=== PATIENT | male | born 1945 | race Caucasian/White ===

== ENCOUNTER 2017-03-18 09:24 | Observation (INO) | payer OTHER, MEDICARE ==
[~2017-03-18] VITALS: Ht 172.7 cm; Wt 63.5 kg
[~2017-03-18 09:24] MED LIST: AUGMENTIN 875-1 EACH PO; AVODART0.5 M1 PO; CITALOPRAM HBR10 MG PO; CLARITIN10 M1 PO; DEPAKOTE ER500 M1 PO; DIVALPROEX SOD500 M3 PO; DOXAZOSIN MESYLA2 M1 PO; ELIDEL30 GM TOP; ENSURE LIQUID237 ML PO; IMIPRAMINE HCL PO; LEVOTHYROXINE50 MCG PO; PANTOPRAZOLE SO40 M1 PO; PROPRANOLOL HCL10 M1 PO; SELENIUM SULFI180 ML TOP; SENNOSIDES-DOC1 EACH PO; TYLENOL325 M1 PO; ZYPREXA5 M1 PO
--- NOTE | 2017-03-18 09:59 | ED GI/GU/ABDOMINAL COMPLAINT ---
History of Present Illness General Chief Complaint: Nausea, Vomiting, Diarrhea Stated Complaint: VOMITING Source: patient Exam Limitations: dementia, anoxic brain injury Vital Signs & Intake/Output Vital Signs & Intake/Output Vital Signs Date Time Temp Pulse Resp B/P B/P Pulse O2 O2 Flow FiO2 Mean Ox Delivery Rate 03/18 1145 96.2 100 20 105/67 96 Room Air 03/18 0929 96.3 88 18 124/70 Allergies Coded Allergies: carbamazepine (UNKNOWN 08/19/15) Reconcile Medications Acetaminophen (Tylenol) 325 MG TABLET 2 TAB PO TID PRN PAIN (Reported) Citalopram Hydrobromide (Citalopram HBr) 10 MG TABLET 1 TAB PO DAILY MENTAL HEALTH (Reported) Divalproex Sodium (Depakote ER) 500 MG TAB.ER.24H 1 TAB PO BID MENTAL HEALTH (Reported) Docusate Sodium (Colace) 100 MG CAPSULE 1 CAP PO BID STOOL SOFTENER (Reported ) Doxazosin Mesylate 2 MG TABLET 1 TAB PO QPM HTN (Reported) Dutasteride (Avodart) 0.5 MG CAPSULE 1 CAP PO QPM BPH (Reported) Imipramine HCl 10 MG TABLET 2 TAB PO QPM MENTAL HEALTH (Reported) Lactose-Reduced Food (Ensure Liquid) 237 ML LIQUID 1 CAN PO AD PRN NUTRITION (Reported) Levothyroxine Sodium 50 MCG TABLET 1 TAB PO DAILY AC THYROID (Reported) Loratadine (Claritin) 10 MG TABLET 1 TAB PO QPM ALLERGIES (Reported) Olanzapine (Zyprexa) 5 MG TABLET 1 TAB PO DAILY DAILY Pantoprazole Sodium 40 MG TABLET.DR 1 TAB PO QPM GI (Reported) Pimecrolimus (Elidel) 1 % CREAM..G. 1 ANNABELLA TOP AD AFFECTED AREA (Reported) apply to affected area(s) Propranolol HCl 10 MG TABLET 1 TAB PO QPM HEART (Reported) Selenium Sulfide 2.25 % SHAMPOO 1 ANNABELLA TOP Sunday RAMIREZ (Reported) Triage Note: PT TO ED WITH C/O VOMITING X 2 THIS AM, DENIES ABD PAIN OR DIARRHEA. Triage Nurses Notes Reviewed? yes Onset: Abrupt Duration: hour(s):, continues in ED, intermittent Timing: multiple episodes today Quality/Severity: severe HPI: Patient presents for evaluation of coughing and vomiting beginning this morning. No other history is available per patient or long-term staff. When asked if there was anything bothering him, Lalita stated "my ass hurts because of the chair" (patient just returned from radiology in a wheelchair) . Past History Travel History Traveled to [place] past 21 day No Medical History Any Pertinent Medical History? 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 No Review of Systems Review of Systems Constitutional: Reports: see HPI. Comments pt unable to provide ros Physical Exam Physical Exam Gastrointestinal: see below Comments: Gen.: Well-nourished, well-developed, no acute respiratory distress. Head: Normocephalic, atraumatic. Eyes: Normal inspection bilaterally Ears: Normal inspection bilaterally Nose: Normal inspection Throat/mouth : Moist mucosa Neck: Supple, full range of motion, no goiter Heart: Regular rate and rhythm, no murmurs rubs or gallops Lungs: Clear to auscultation bilaterally with normal air entry Chest: Nontender Back: Normal range of motion Abdomen: Soft, nontender, nondistended, normal bowel sounds Extremities: Normal range of motion grossly, equal radial pulses, no cyanosis clubbing or edema Neurologic: Cranial nerves grossly intact, speech is clear Skin: warm and dry Psychiatric: Calm, cooperative, paucity of speech Core Measures ACS in differential dx? No Sepsis Present: No Sepsis Focused Exam Completed? No Progress Differential Diagnosis: bowel obstruction, gastritis, pancreatitis, PUD/GERD Plan of Care: Orders Procedure Date/time Status Regular Diet 03/[address] in observation 03/18 1221 Active Misc Message 03/18 1221 Active ED Holding Orders 03/18 1221 Active Vital Signs 03/18 1221 Active Code Status 03/18 1221 Active Add-on Test (ER Only) 03/18 1209 Active CULTURE,URINE 03/18 1015 Active URINALYSIS 03/18 1015 Complete LIPASE 03/18 1015 Complete COMPREHENSIVE METABOLIC PANEL 03/18 1015 Complete CBC WITHOUT DIFFERENTIAL 03/18 101 Complete Current Medications Sig/Rehan Start time Last Medication Dose Stop Time Status Admin Sodium Chloride 1,000 ML ONCE ONE 03/18 1215 AC (Normal Saline 0.9%) 03/18 1854 Laboratory Tests 03/18/17 1035: Urinalysis LIGHT H, Urine Color ORANG H, Urine Clarity HAZY H, Urine pH 6.0, Ur Specific [place] >= 1.030, Urine Protein 30 H, Urine Ketones 15 H, Urine Nitrite POS H, Urine Bilirubin NEG@ICTO, Urine Urobilinogen 0.2, Ur Leukocyte Esterase NEG, Ur Microscopic SEDIMENT EXAMINED, Urine WBC RARE, Ur Epithelial Cells FEW, Urine Mucus MANY H, Micro UA Comment , Urine Hemoglobin NEG, Urine Glucose NEG 03/18/17 1029: Anion Gap 13, Estimated GFR > 60, BUN/Creatinine Ratio 31.4 H, Glucose 197 H, Calcium 8.6, Total Bilirubin 2.5 H, AST 35, ALT 33, Alkaline Phosphatase 50, Total Protein 6.7, Albumin 3.9, Globulin 2.8, Albumin/Globulin Ratio 1.4, Lipase 136, CBC w Diff MAN DIFF ORDERED, RBC 5.85, MCV 87.8, MCH 30.3, RDW 14.1, MPV 9.3, Gran % 93.1 H, Lymphocytes % 1.5 L, Monocytes % 5.3, Eosinophils % 0.1, Basophils % 0, Absolute Granulocytes 10.2 H, Segmented Neutrophils 76 H, Band Neutrophils 16 H, Absolute Lymphocytes 0.2 L, Lymphocytes 2 L, Monocytes 6, Absolute Monocytes 0.6, Absolute Eosinophils 0, Absolute Basophils 0, Platelet Estimate DECREASED, PUBS MCHC 34.5 Microbiology 03/18 1015 URINE ROUT: Urine Culture - RECD Diagnostic Imaging: Discussed w/RAD: Radiology Read. Radiology Impression: PATIENT: LALITA SABILLON PRESENT AGE: 72 PATIENT ACCOUNT NO: [id number] : 45 LOCATION: [facility] ORDERING PHYSICIAN: Nestor Zamora MD SERVICE DATE: 03/18/17 EXAM TYPE : RAD - [id number]-[id number]-SZOOSLVF VIEWS EXAMINATION: XR ABDOMEN MULTIPLE VIEWS CLINICAL INDICATION: Vomiting COMPARISON: CT abdomen and pelvis from 12/22/2008 TECHNIQUE: Upright and supine views of the abdomen. FINDINGS: Relative paucity of bowel gas. No gas-filled dilated bowel loops. No evidence of pneumoperitoneum. Multiple surgical clips project over the abdomen. Visualized lung bases are clear. IMPRESSION: Relative paucity of bowel gas. Otherwise unremarkable without gas-filled dilated loops. DICTATED BY: Odette Chen MD DATE/TIME DICTATED:03/18/171106 PARTY SUPPLY SPECIALIST:TERESA DATE/TIME TRANSCRIBED:03/18/171106 CONFIDENTIAL, DO NOT COPY WITHOUT APPROPRIATE AUTHORIZATION. <Electronically signed in Other Vendor System> SIGNED BY: Odette Chen MD 03/18/17 111 CXR Impression: PATIENT: LALITA SABILLON PRESENT AGE : 72 PATIENT ACCOUNT NO: [id number] : 45 LOCATION: [facility] ORDERING PHYSICIAN: Nestor Zamora MD SERVICE DATE: 03/18/17 EXAM TYPE: RAD - XRY-CHEST XRAY, TWO VIEWS EXAMINATION: XR CHEST CLINICAL INFORMATION: Vomiting. COMPARISON: 02/20/2017 TECHNIQUE: 2 views of the chest were obtained. FINDINGS: No focal consolidation, pulmonary edema, or pleural effusion. Normal cardiomediastinal silhouette. IMPRESSION: Unremarkable examination. DICTATED BY: Dejon Duarte MD DATE/TIME DICTATED:03/18/171105 PARTY SUPPLY SPECIALIST: TERESA DATE/TIME TRANSCRIBED:03/18/171105 CONFIDENTIAL, DO NOT COPY WITHOUT APPROPRIATE AUTHORIZATION. <Electronically signed in Other Vendor System> SIGNED BY: Dejon Duarte MD 03/18/17 111 Initial ED EKG: none Comments: 03/18/2017 12:02:39 PM I have updated [facility] and long-term staff on patient's evaluation. Miguel A urine is testing positive for nitrites there is no leukocyte esterase or white cells so I suspect given the orange discoloration that the nitrites may been a false positive. Patient does have a bandemia however and a recent hospitalization for severe sepsis. I'm attempting to contact his primary care physician regarding disposition. Clinically the patient remains stable and comfortable appearing. 03/18/2017 12:27:08 PM I have updated the long-term staff on Lalita's disposition. I was told that Lalita has been to the bathroom twice, feeling the need to urinate, but unable to do so. I feel this reflects urinary hesitancy and does raise the question of a urinary tract infection. Departure Departure Disposition: STILL A PATIENT Condition: Stable Clinical Impression Primary Impression: Bandemia Secondary Impressions: Metabolic acidosis Referrals: Cira Tamayo APRN (PCP/Family) Departure Forms: Customer Survey General Discharge Information Observation Note Spoke With: Andrea Verde MD Patient In: Non-ED [facility] Care Area Rationale for Observation: My rational for observation is as follows patient had a recent admission for severe sepsis secondary to pneumonia. He presents today with a cough and vomiting. His evaluation reveals a bandemia of unclear etiology. Although his urinalysis tests positive for nitrites it is difficult to interpret given the discoloration. However, nitrites in the urine does raise the question of a urea splitting urinary tract infection and this could potentially lead to sepsis in this elderly gentleman. To further complicate this patient's presentation he is unable to provide history given his history of anoxic brain injury and dementia. I do not feel this patient is a good candidate for outpatient treatment at this point but instead requires close clinical monitoring of vital signs and his clinical condition for the possibility of developing sepsis. During his hospitalization he should be administer gentle IV fluids in order to obtain another urinalysis to monitor for clearance of the urine discoloration and nitrites. The urine culture should be followed and treated accordingly. A repeat CBCs should be obtained to assess for reduction and bandemia.
[2017-03-18 10:47] LABS: ABSOLUTE BASOPHIL COUNT 0 /CUMM (0.0-0.2); ABSOLUTE EOSINOPHIL COUNT 0 /CUMM (0.0-0.7); BASOPHIL % 0 % (0.0-2.0); EOSINOPHIL % 0.1 % (0-5)
--- NOTE | 2017-03-18 11:15 | RADIOLOGY REPORT ---
EXAMINATION: XR CHEST CLINICAL INFORMATION: Vomiting. COMPARISON: 02/20/2017 TECHNIQUE: 2 views of the chest were obtained. FINDINGS: No focal consolidation, pulmonary edema, or pleural effusion. Normal cardiomediastinal silhouette. IMPRESSION: Unremarkable examination.
--- NOTE | 2017-03-18 11:17 | RADIOLOGY REPORT ---
EXAMINATION: XR ABDOMEN MULTIPLE VIEWS CLINICAL INDICATION: Vomiting COMPARISON: CT abdomen and pelvis from 12/22/2008 TECHNIQUE: Upright and supine views of the abdomen. FINDINGS: Relative paucity of bowel gas. No gas-filled dilated bowel loops. No evidence of pneumoperitoneum. Multiple surgical clips project over the abdomen. Visualized lung bases are clear. IMPRESSION: Relative paucity of bowel gas. Otherwise unremarkable without gas-filled dilated loops.
[2017-03-18 11:18] LABS: ABSOLUTE GRANULOCYTE CT 10.2 /CUMM (1.4-6.5); ABSOLUTE LYMPH COUNT 0.2 /CUMM (1.2-3.4); ABSOLUTE MONOCYTE COUNT 0.6 /CUMM (0.10-0.60); GRANULOCYTE % 93.1 % (42.2-75.2); HEMATOCRIT 51.3 % (42-52); MEAN CORPUSCULAR HGB 30.3 PG (27.0-31.0); MEAN CORPUSCULAR HGB CONC 34.5 G/DL (33.0-37.0); MEAN CORPUSCULAR VOLUME 87.8 FL (80.0-94.0); RBC DISTRIBUTION WIDTH 14.1 % (11.5-14.5); RED BLOOD CELL CT 5.85 /CUMM (4.70-6.10); WHITE BLOOD CELL COUNT 10.9 /CUMM (4.8-10.8)
[2017-03-18 11:19] LABS: MEAN PLATELET VOLUME 9.3 FL (7.4-10.4)
[2017-03-18 11:28] LABS: PLATELET COUNT 102 /CUMM (130-400)
[2017-03-18] MEDS ORDERED: COLACE100 M1 PO (12:14)
[2017-03-18] MEDS ORDERED: ENSURE LIQUID237 ML PO (12:15)
--- NOTE | 2017-03-18 13:51 | History & Physical ---
Bee HYMAN,[facility] 03/18/17 1351: General Information and HPI MD Statement: I have seen and personally examined LIZ SABILLON and documented this H&P. The patient is a 72 year old M who presented with a patient stated chief complaint of []. History of Present Illness: Mr. Sabillon is a 71-year-old male with past medical history of dementia, chronic podiatry, hypertension, and asthma who presents with one-day history of cough productive of white sputum and associated with multiple episodes of nonbloody vomiting, and very mild upper abdominal pain. The patient was recently discharged after he was treated for sepsis secondary to pneumonia. The patient is a poor historian secondary to his dementia, healthcare aide was in the room and he provided most of the history, he reported that patient had a 1 day history of multiple episodes of nonbloody vomiting. He denies fever, chills, diarrhea, or constipation. Even though patient denies urinary symptom, he was found to have polyuria while in the ED with a feeling of incomplete bladder emptying. Allergies/Medications Allergies: Coded Allergies: carbamazepine (UNKNOWN 08/19/15) Home Med list Acetaminophen (Tylenol) 325 MG TABLET 2 TAB PO TID PRN PAIN (Reported) Citalopram Hydrobromide (Citalopram HBr) 10 MG TABLET 1 TAB PO DAILY MENTAL HEALTH (Reported) Divalproex Sodium (Depakote ER) 500 MG TAB.ER.24H 1 TAB PO BID MENTAL HEALTH (Reported) Docusate Sodium (Colace) 100 MG CAPSULE 1 CAP PO BID STOOL SOFTENER (Reported ) Doxazosin Mesylate 2 MG TABLET 1 TAB PO QPM HTN (Reported) Dutasteride (Avodart) 0.5 MG CAPSULE 1 CAP PO QPM BPH (Reported) Imipramine HCl 10 MG TABLET 2 TAB PO QPM MENTAL HEALTH (Reported) Lactose-Reduced Food (Ensure Liquid) 237 ML LIQUID 1 CAN PO AD PRN NUTRITION (Reported) Levothyroxine Sodium 50 MCG TABLET 1 TAB PO DAILY AC THYROID (Reported) Loratadine (Claritin) 10 MG TABLET 1 TAB PO QPM ALLERGIES (Reported) Olanzapine (Zyprexa) 5 MG TABLET 1 TAB PO DAILY DAILY Pantoprazole Sodium 40 MG TABLET.DR 1 TAB PO QPM GI (Reported) Pimecrolimus (Elidel) 1 % CREAM..G. 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 EENTM: Denies: visual changes, hearing changes. Cardiovascular: Denies: chest pain, orthopena, palpitations, peripheral edema, syncope. Respiratory: Reports: cough, sputum production. Denies: hemoptysis, orthopnea, short of breath, stridor, wheezing. GI: Reports: abdominal pain, nausea, vomiting. Denies: constipation, diarrhea, distention. Genitourinary: Reports: frequency. Denies: dysuria, hematuria, hesitation. Neurological/Psychological: Reports: dementia. Denies: headache, numbness, tingling. Exam & Diagnostic Data Last 24 Hrs of Vital Signs/I&O Vital Signs Date Time Temp Pulse Resp B/P B/P Pulse O2 O2 Flow FiO2 Mean Ox Delivery Rate 03/18 1814 97.9 110 18 135/78 96 Room Air 03/18 1603 98.0 100 18 122/60 98 Room Air 03/18 1407 98.2 105 18 112/72 97 03/18 1145 96.2 100 20 105/67 96 Room Air 03/18 0929 96.3 88 18 124/70 Intake & Output 03/18 1600 03/18 0800 03/18 0000 Intake Total Output Total Balance Patient 63.503 kg Weight Weight Reported by Patient Measurement Method Physical Exam General Appearance Alert, Cooperative, not fully oriented Skin No Rashes, No Breakdown, No Significant Lesion HEENT Atraumatic, PERRLA, EOMI, Mucous Membr. moist/pink Neck No JVD Cardiovascular Regular Rate, Normal S1, Normal S2, No Murmurs Lungs Clear to Auscultation, Normal Air Movement Abdomen Normal Bowel Sounds, Soft, RUQ tenderness with positive macias's sign Neurological Normal Speech, Strength at 5/5 X4 Ext, but dementic Extremities No Clubbing, No Cyanosis, No Edema Last 24 Hrs of Labs/Scooter: Laboratory Tests 03/18/17 1804: Direct Bilirubin 0.4 03/18/17 1035: Urinalysis LIGHT H, Urine Color ORANG H, Urine Clarity HAZY H, Urine pH 6.0, Ur Specific [place] >= 1.030, Urine Protein 30 H, Urine Ketones 15 H, Urine Nitrite POS H, Urine Bilirubin NEG@ICTO, Urine Urobilinogen 0.2, Ur Leukocyte Esterase NEG, Ur Microscopic SEDIMENT EXAMINED, Urine WBC RARE, Ur Epithelial Cells FEW, Urine Mucus MANY H, Micro UA Comment , Urine Hemoglobin NEG, Urine Glucose NEG 03/18/17 1029: Anion Gap 13, Estimated GFR > 60, BUN/Creatinine Ratio 31.4 H, Glucose 197 H, Calcium 8.6, Total Bilirubin 2.5 H, AST 35, ALT 33, Alkaline Phosphatase 50, Total Protein 6.7, Albumin 3.9, Globulin 2.8, Albumin/Globulin Ratio 1.4, Lipase 136, CBC w Diff MAN DIFF ORDERED, RBC 5.85, MCV 87.8, MCH 30.3, RDW 14.1, MPV 9.3, Gran % 93.1 H, Lymphocytes % 1.5 L, Monocytes % 5.3, Eosinophils % 0.1, Basophils % 0, Absolute Granulocytes 10.2 H, Segmented Neutrophils 76 H, Band Neutrophils 16 H, Absolute Lymphocytes 0.2 L, Lymphocytes 2 L, Monocytes 6, Absolute Monocytes 0.6, Absolute Eosinophils 0, Absolute Basophils 0, Platelet Estimate DECREASED, PUBS MCHC 34.5 Microbiology 03/18 1015 URINE ROUT: Urine Culture - RECD Assessment/Plan Assessment: This is 72-year-old male who was not able to provide precise history secondary to his dementia. He presented with cough productive of white sputum but without chest pain, fever, shortness breath or palpitation. He also reported multiple episodes of nonbloody vomiting. On admission his white blood cell was found to be 10.9 with mild bandemia. The origin is unclear however his urine had a positive nitrate but negatively leukocyte esterase. He was found to have isolated elevated total bilirubin, but ultrasound did not reveal any gallbladder pathology. Plan * Patient will be admitted to general medicine floor as an * We will hydrate patient with IV fluid * We repeat BEP and liver function in the morning * We will repeat CBCs to follow bandemia * We will repeat urinalysis after hydration. * We will order Zofran when necessary for nausea * We will advance diet as tolerated. * We will continue all home medication includes PPI, Olanzapine, loratadine, levothyroxine, imipramine, Avodart, doxazosin, Colace, Depakote, and citalopram. We will start patient on clear diet DVT prophylaxis pharmacological and mechanical Full code As Ranked By This Provider Problem List: 1. Bandemia Core Measures/Misc (11/26) Acute Coronary Syndrome ACS Diagnosis: No Congestive Heart Failure Congestive Heart Failure Diagnosis No Cerebrovascular Accident CVA/TIA Diagnosis: No VTE (View Protocol) VTE Risk Factors Age>40 No Mechanical VTE Prophylaxis d/t N/A MechProphylax Ordered No VTE Pharm Prophylaxis d/t NA PharmProphylax ordered Sepsis (View protocol) Sepsis Present: Yes Andrea Verde MD 03/18/17 2319: Attending MD Review Statement Attending Statement Attending MD Statement: examined this patient, discuss w/resident/PA/BELLY ROLLER, agreed w/resident/PA/BELLY ROLLER, reviewed EMR data (avail), discussed with nursing, reviewed images, amended to note Attending Assessment/Plan: The patient is a 71 yo male (patient at alf) with/o dementia, HTN, & asthma who presented in the [facility] ED today after 2 episodes of emesis with some abdominal discomfort. He was recently a patient at [facility] and treated for sepsis/pneumonia. He denied any fevers, dyspnea, palpitations, diarrhea or constipation. He had frequent urination in ED and was noted by ED MD that his urine was "orange" colored. Incidentally had new isolated increase in Bilirubin to 2.5. Pain was mostly localized to RUQ of the abdomen. Physical Exam: VS: T 97.9, P 110, R 18, BP 135/78, PO 96% RA HEENT: eyes- PERRLA, EOMI dannie- dry mucosa Neck: no bruits or adenopathy Chest: clear Cor: RRR nl S1, S2 w/o murm Abd: BS+, softly distended, + mild RUQ tenderness w/o guarding or rebound at time of my exam (patient stated that it had improved since prior ED exam). Ext: no edema, pulses 2+ Neuro: patient quiet, SWIFT, no obvious focal deficits Labs/Tests - as above Impression/Plan: #Gastritis/Emesis- may represent viral process. Does have mild elated WBC along with bandemia/ left shift. Concern regarding potential bacterial infection. Plan: Bring in as OBS patient. Follow-up WBC and differential. Watch for diarrhea and check C-diff if loose stool (recent Abx). Zofran for nausea. Continue PPI. #Elevated Bilirubin- ? isolated elevated bilirubin with normal LFT' (AST, ALT, AP). Urine noted to be orange by ED physician. Plan: RUQ US done (patient is s/p cholecystectomy reviewing old CT with Radiology). Fractionate bilirubin (direct/indirect). Follow-up LFT's. Consider CT follow-up. #Hypothyroid- on Levothyroxine. Plan: Continue Levothyroxine if able to take vamshi. #HTN- BP as above. Plan: Continue Doxazosin, Propranolol. #BPH- on Doxazosin/Avodart. Plan: Continue Doxazosin/Avodart. #Depression- Olanzapine/Citalopram/Depakote. Plan: Continue usual meds- check Depakote level.
--- NOTE | 2017-03-18 18:02 | ULTRASOUND REPORT ---
EXAMINATION: US ABDOMEN LIMITED CLINICAL INFORMATION: Right upper quadrant abdominal tenderness and elevated total bilirubin. Presumptive diagnosis of biliary disease. COMPARISON: CT scan of the abdomen and pelvis dated 12/22/2008. TECHNIQUE: Real-time imaging of the right upper quadrant abdominal viscera. FINDINGS: Evaluation is limited due to difficulties with overlying bowel gas and due to patient's inability to suspend respiration. PANCREAS: The pancreatic body and portions of the head and tail are visualized and appear slightly echogenic, suggesting fatty infiltration. Remainder of pancreas is obscured by overlying bowel gas. LIVER: Poorly visualized due to adjacent bowel gas. The liver grossly normal in size, contour and echogenicity. No focal lesion or intrahepatic biliary duct dilatation. GALLBLADDER: Surgically absent. COMMON BILE DUCT: Normal in caliber measuring 0.4 cm in diameter. RIGHT KIDNEY: Renal cortical thinning and increased echogenicity is seen, suggesting medical renal disease. No hydronephrosis. No renal calculi. There is a 1.3 x 1.2 x 1.1 cm simple avascular cyst in the mid right kidney. The kidney measures 10.3 cm in maximum dimension. FREE FLUID: None. IMPRESSION: 1. Limited exam as discussed above. 2. Liver is poorly visualized, but appears grossly unremarkable. 3. Gallbladder is surgically absent. No evidence of intra or extrahepatic ductal dilatation. 4. Fatty infiltration of the pancreatic body. Remainder of the pancreas not adequately seen. 5. Findings suggestive of medical renal disease. Small mid renal cyst is also seen.
[2017-03-18 22:18] VITALS: BP 130/60
[2017-03-19 06:11] VITALS: BP 116/70
--- NOTE | 2017-03-19 08:17 | PN-Observation ---
Sharlene HYMAN,Kristyn 03/19/17 0817: Observation Note Observation Note _ I have personally examined LIZ SABILLON. him disposition is uncertain at this time. Before a determination can be made, he requires continued observation for the following reasons []. Assessment/Plan Assessment: 72-year-old male with past medical history of dementia,, asthma who presented to [facility] with 1 day history of productive cough associated with multiple episodes of vomiting and very mild upper abdominal pain. The patient was recently discharged after he was treated for sepsis secondary to pneumonia. On admission he was found to have isolated elevated total bilirubin, ultrasound did not reveal any gallbladder pathology. On subsequent testing his total bilirubin remained high but less than that on admission #Upper respiratory infection Chest x-ray was unremarkable Patient is afebrile with normal white blood cell count(on admission he had increased white cell count was mild bandemia which had subsequently improved today) He reports improvement of his cough and expectoration He was able to tolerate his diet without vomiting or abdominal pain We'll continue to monitor off antibiotics #Right testicular pain The patient complained of 5/10 dull aching right testicular pain Right testicle was tender to palpation Ultrasound testicle didn't show any acute abnormality Urine analysis showed positive nitrite, will follow up on urine culture which was ordered #Nausea, vomiting, abdominal pain Improved Patient was able to tolerate his full liquid diet #Chronic medical conditions Continue home meds including PPI, Olanzapine, loratadine, levothyroxine, imipramine, Avodart, doxazosin, Colace, Depakote, and citalopram. 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 Bandemia 2. Testicular pain DVT/Prophylaxis: mechanical, pharmacological Subjective Follow-up For: 1Upper resp infection 2nausea, vomiting and abdominal pain and Subjective: Patient is seen and examined at bedside, he is lying down in bed in no acute distress, he endorses a dull aching pain in his right testicle which is 5/10 in severity, he also endorses tenderness to touch. He reports improvement of his cough and expectoration. He denies any nausea, vomiting, abdominal pain. He was able to tolerate his clear liquid diet. Review of Systems Constitutional: Denies: no symptoms. Cardiovascular: Denies: no symptoms. Respiratory: Denies: cough, short of breath, sputum production. Gastrointestinal: Denies: no symptoms. Genitourinary: Reports: see HPI, pain. Musculoskeletal: Denies: no symptoms. Objective Last 24 Hrs of Vital Signs/I&O Vital Signs Date Time Temp Pulse Resp B/P B/P Pulse O2 O2 Flow FiO2 Mean Ox Delivery Rate 03/19 0611 98.6 93 20 116/70 95 Room Air 03/18 2300 98.5 112 20 130/60 03/18 2218 98.5 112 20 130/60 94 03/18 1814 97.9 110 18 135/78 96 Room Air 03/18 1603 98.0 100 18 122/60 98 Room Air 03/18 1407 98.2 105 18 112/72 97 Intake & Output 03/19 1600 03/19 0800 03/19 0000 Intake Total 500 300 Output Total 200 200 Balance -200 500 100 Intake, IV 300 Intake, Oral 500 Number 1 Bowel Movements Output, Urine 200 200 Patient 140 lb Weight Physical Exam General Appearance: Alert, Cooperative, No Acute Distress Skin: No Rashes, No Breakdown, No Significant Lesion HEENT: Atraumatic, PERRLA, EOMI, Mucous Membr. moist/pink Neck: Supple, No JVD Cardiovascular: Normal S1, Normal S2, No Murmurs Lungs: Clear to Auscultation, Normal Air Movement Abdomen: Normal Bowel Sounds, Soft, No Tenderness Neurological: Normal Speech Extremities: No Clubbing, No Cyanosis, No Edema Vascular: Normal Pulses Other Physical Findings: genital exam reveals redness and tenderness of the right testicle however it was in normal position, didn't show elevation or enlargement Susanne Huertas MD 03/19/17 1607: Addendum Addendum Eating comfortably without nausea, vomiting, or pain. Back to baseline. Stable for discharge back to facility. Incontinence and skin issues can be managed as an outpatient.
--- NOTE | 2017-03-19 09:57 | ULTRASOUND REPORT ---
EXAMINATION: US SCROTUM CLINICAL INFORMATION: Right-sided testicular pain. COMPARISON: None TECHNIQUE: A sonogram of the scrotum was performed assessing neal-scale appearance and color Doppler flow. Spectral analysis and Doppler interrogation was performed. FINDINGS: RIGHT: The right testicle has normal size, shape and echotexture; it measures 2.7 x 4.2 x 3.4 cm. No microlithiasis or mass. Color Doppler images with spectral waveforms show normal venous and arterial flow within the testicle. The epididymal head is 1 cm thick. No evidence of epididymitis or orchitis. No hydrocele or varicocele. LEFT: Left testicle has normal size, shape and echotexture; it measures 2.6 x 5.7 x 2 cm. No microlithiasis or mass. Color Doppler images with spectral waveforms show presence of normal arterial and venous flow within the testicle. The epididymal head is 0.9 cm thick. There are three cysts of the tunica albuginea, largest measuring up to 0.4 cm. No hydrocele or varicocele. IMPRESSION: No acute findings within the scrotum. No evidence of testicular torsion, epididymitis or orchitis.
[2017-03-19 10:41] LABS: ABSOLUTE BASOPHIL COUNT 0 /CUMM (0.0-0.2); ABSOLUTE EOSINOPHIL COUNT 0 /CUMM (0.0-0.7); ABSOLUTE GRANULOCYTE CT 4.9 /CUMM (1.4-6.5); ABSOLUTE LYMPH COUNT 0.7 /CUMM (1.2-3.4); BASOPHIL % 0 % (0.0-2.0); MEAN CORPUSCULAR HGB 30.7 PG (27.0-31.0); MEAN CORPUSCULAR HGB CONC 35.3 G/DL (33.0-37.0); PLATELET COUNT 106 /CUMM (130-400); WHITE BLOOD CELL COUNT 6.3 /CUMM (4.8-10.8)
[2017-03-19 11:31] LABS: ABSOLUTE MONOCYTE COUNT 0.6 /CUMM (0.10-0.60); EOSINOPHIL % 0.1 % (0-5); GRANULOCYTE % 78.2 % (42.2-75.2); MEAN CORPUSCULAR VOLUME 86.9 FL (80.0-94.0); MEAN PLATELET VOLUME 8.3 FL (7.4-10.4); RBC DISTRIBUTION WIDTH 14.7 % (11.5-14.5)
[2017-03-19 11:40] LABS: HEMATOCRIT 36.8 % (42-52); RED BLOOD CELL CT 4.23 /CUMM (4.70-6.10)
--- NOTE | 2017-03-19 13:38 | Patient Discharge Instructions ---
Discharge Instructions General Discharge Information You were seen/treated for: Upper respiratory infection Abdominal pain, nausea Special Instructions: 1please follow-up with your PCP in 1 week of discharge 2please come back to the ED if you experience worsening of symptoms 3-please follow-up with your plant tech for skin cancer in 1 week of discharge Diet Continue normal diet: Yes Recommended Diet: Heart Healthy Activity Full Activity/No Limits: Yes Acute Coronary Syndrome Inclusion Criteria At DC or during hospital stay patient has or had the following: ACS DIAGNOSIS No Discharge Core Measures Meds if any: Prescribed or Continued at Discharge Meds if any: NOT Prescribed or Continued at Discharge Congestive Heart Failure Inclusion Criteria At DC or during hospital stay patient has or had the following: CHF DIAGNOSIS No Discharge Core Measures Meds if any: Prescribed or Continued at Discharge Meds if any: NOT Prescribed or Continued at Discharge Cerebrovascular accident Inclusion Criteria At DC or during hospital stay patient has or had the following: CVA/TIA Diagnosis No Discharge Core Measures Meds if any: Prescribed or Continued at Discharge Meds if any: NOT Prescribed or Continued at Discharge Venous thromboembolism Inclusion Criteria VTE Diagnosis No VTE Type NONE VTE Confirmed by (Test) NONE Discharge Core Measures - Per Current guidelines, there needs to be overlap - treatment for the first 5 days of Warfarin therapy. - If discharged on Warfarin prior to 5 days of - overlap therapy, the patient will need to be - assessed for post discharge needs including - *Post discharge parental anticoagulation - *Warfarin and/or parental anticoagulation education - *Follow up date to check INR post discharge At least 5 days overlap therapy as Inpatient No Meds if any: Prescribed or Continued at Discharge Note: Overlap Therapy is Warfarin and Anticoagulant Meds if any: NOT Prescribed or Continued at Discharge
[2017-03-19 14:22] VITALS: BP 132/70
[2017-03-19 22:34] VITALS: BP 122/70
[2017-03-20 06:27] VITALS: BP 90/56
--- NOTE | 2017-03-20 07:18 | PN-Observation ---
Sharlene HYMAN,Kristyn 03/20/17 0718: Observation Note Observation Note _ I have personally examined LIZ SABILLON. him disposition is uncertain at this time. Before a determination can be made, he requires continued observation for the following reasons []. Assessment/Plan Assessment: 72-year-old male with past medical history of dementia,, asthma who presented to [facility] with 1 day history of productive cough associated with multiple episodes of vomiting and very mild upper abdominal pain. The patient was recently discharged after he was treated for sepsis secondary to pneumonia. On admission he was found to have isolated elevated total bilirubin, ultrasound did not reveal any gallbladder pathology. On subsequent testing his total bilirubin remained high but less than that on admission #Upper respiratory infection Chest x-ray was unremarkable Patient is afebrile with normal white blood cell count(on admission he had increased white cell count was mild bandemia which had subsequently improved ) He reports improvement of his cough and expectoration He was able to tolerate his diet without vomiting or abdominal pain We'll continue to monitor off antibiotics #Right testicular pain Improved , today the patient reports no pain Ultrasound testicle didn't show any acute abnormality Urine analysis showed positive nitrite, will follow up on urine culture #Nausea, vomiting, abdominal pain Improved Patient was able to tolerate his regular liquid diet #Chronic medical conditions Continue home meds including PPI, Olanzapine, loratadine, levothyroxine, imipramine, Avodart, doxazosin, Colace, Depakote, and citalopram. 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 Upper respiratory infection DVT/Prophylaxis: mechanical, pharmacological Subjective Follow-up For: 1Upper resp infection 2nausea, vomiting and abdominal pain Subjective: pt is seen and examined at bedside, he reports improvement of his cough. He was noticed to be hypotensive this morning , BP 90/56, He denies any testicular pain. He also denies any fever, chills, abdominal pain, nausea, vomiting or diarrhea Review of Systems Constitutional: Denies: no symptoms. Cardiovascular: Denies: no symptoms. Respiratory: Reports: cough. Denies: orthopnea, short of breath, sputum production. Gastrointestinal: Denies: no symptoms. Genitourinary: Denies: no symptoms. Musculoskeletal: Denies: no symptoms. Objective Last 24 Hrs of Vital Signs/I&O Vital Signs Date Time Temp Pulse Resp B/P B/P Pulse O2 O2 Flow FiO2 Mean Ox Delivery Rate 03/20 06 98.0 94 20 90/56 94 Room Air 03/19 2234 98.4 93 20 122/70 96 Room Air 03/19 2227 93 18 122/70 03/19 1422 97.5 87 20 132/70 93 Room Air 03/19 1412 Room Air Intake & Output 03/20 1600 03/20 0800 03/20 0000 Intake Total 480 780 Output Total Balance 480 780 Intake, IV 300 Intake, Oral 480 480 Physical Exam General Appearance: Alert, Oriented X3, Cooperative, No Acute Distress Skin: No Rashes, No Breakdown, small black hyperkeratotoc skin lesion on the soler of the right leg HEENT: Atraumatic, PERRLA, EOMI, Mucous Membr. moist/pink Neck: Supple, No JVD Cardiovascular: Normal S1, Normal S2, No Murmurs Lungs: Clear to Auscultation, Normal Air Movement Abdomen: Normal Bowel Sounds, Soft, No Tenderness Neurological: Normal Speech, Strength at 5/5 X4 Ext Extremities: No Clubbing, No Cyanosis, No Edema Vascular: Normal Pulses, Pulses Symmetrical Susanne Huertas MD 03/20/17 1329: Addendum Addendum Patient is back to baseline. No complaints, eating well. Stable for discharge back to [facility].
[2017-03-20 14:01] VITALS: BP 126/68
== END 2017-03-20 15:35 | disposition home health service (06) ==
LOC: DELPENDDIS → ERH 09:24 → ERHI 13:35 → 2NA 13:35 → ENRESERV 17:38 → ENTRNSPT 19:08 → EDTRNSPTSTS 19:17 → CMPTRNSPT 19:27 → 2NA 19:29 → ENPENDDIS 03-19 13:46 → ENTRNSPT 03-20 15:19 → 2NA 03-20 15:35 → CMPTRNSPT 03-20 15:38
PROVIDERS: Emergency Medicine; Student in an Organized Health Care Education/Training Program
DX: J06.9 Acute upper respiratory infection, unspecified (principal); N50.811 Right testicular pain; F03.90 Unspecified dementia, unspecified severity, without behavioral disturbance, psychotic disturbance, mood disturbance, and anxiety; I10 Essential (primary) hypertension; J45.909 Unspecified asthma, uncomplicated; N40.0 Benign prostatic hyperplasia without lower urinary tract symptoms; E03.9 Hypothyroidism, unspecified; R11.2 Nausea with vomiting, unspecified; F32.9 Major depressive disorder, single episode, unspecified
CPT/HCPCS: 6030; 36415; 71046; 74021; 81001; 81003; 82436; 87086; 96372; 97116-GP; 97161-GP; G0378; G8978-GP; G8979-GP; J1650; J2405